=== PATIENT | male | born 1985 | race Caucasian/White ===

== ENCOUNTER 2020-10-05 13:56 | Emergency (ER) | payer OTHER ==
[2020-10-05 15:02] LABS: HEMOGLOBIN 16.3 gm/dl (14.0-17.5); RED BLOOD COUNT 5.11 M/UL (4.20-5.50); WHITE BLOOD COUNT 15.1 K/UL (4.5-11.0)
[2020-10-05 15:21] LABS: BUN/CREATININE RATIO 16 (0-10)
[2020-10-05] MEDS ORDERED: LISINOPRIL10 MG PO (17:17)
== END 2020-10-05 17:24 | disposition home or self-care (01) ==
LOC: ER1 13:56
PROVIDERS: Physician Assistant Medical
DX: R07.89 Other chest pain (principal); E78.5 Hyperlipidemia, unspecified; I11.9 Hypertensive heart disease without heart failure; I25.10 Atherosclerotic heart disease of native coronary artery without angina pectoris; F17.210 Nicotine dependence, cigarettes, uncomplicated; Z90.49 Acquired absence of other specified parts of digestive tract; Z90.89 Acquired absence of other organs
CPT/HCPCS: 71045; 80053; 82550; 82553; 83874; 84439; 84443; 84484; 85025; 85379; 93005; 96374; 99285; J7030

== ENCOUNTER 2020-10-08 11:17 | Emergency (ER) | payer OTHER ==
[~2020-10-08 11:17] MED LIST: LISINOPRIL10 MG PO
[2020-10-08 12:20] LABS: HEMOGLOBIN 15.4 gm/dl (14.0-17.5); RED BLOOD COUNT 5.02 M/UL (4.20-5.50); WHITE BLOOD COUNT 13.4 K/UL (4.5-11.0)
[2020-10-08 12:46] LABS: BUN/CREATININE RATIO 17 (0-10)
== END 2020-10-08 15:30 | disposition home or self-care (01) ==
LOC: ER1 11:17
PROVIDERS: Emergency Medicine
DX: R07.2 Precordial pain (principal); I10 Essential (primary) hypertension
CPT/HCPCS: 71045; 80053; 82550; 82553; 83874; 83880; 84484; 85025; 93005; 99285